=== PATIENT | female | born 1970 | race Caucasian/White ===

== ENCOUNTER 2017-01-14 06:57 | Day surgery (SDC) | payer OTHER ==
[~2017-01-14 06:57] MED LIST: CLONAZEPAM2 M2 PO; EFFEXOR PO; EFFEXOR XR75 M1 PO; FACTIVE; TRAZODONE HCL50 M1 PO; WELLBUTRIN XL150 M1 PO; WELLBUTRIN75 M1 PO
[2017-01-15] MEDS ORDERED: PERCOCET 5-3251 EACH PO (15:23)
[2017-01-15] MEDS ORDERED: IBUPROFEN800 M1 PO (15:24)
[2017-01-15] MEDS ORDERED: PRENATAL-U CAPS1 CAP PO (15:25)
== END 2017-01-15 16:05 ==
LOC: SHSC 06:57 → PACU 10:50 → OBGF 11:50
PROC: 0UT94ZZ Resection of Uterus, Percutaneous Endoscopic Approach (ICD-10-PCS; principal; 2017-01-14)
PROC: 0UTC4ZZ Resection of Cervix, Percutaneous Endoscopic Approach (ICD-10-PCS; 2017-01-14)
PROC: 0UT74ZZ Resection of Bilateral Fallopian Tubes, Percutaneous Endoscopic Approach (ICD-10-PCS; 2017-01-14)
PROC: 8E0W4CZ Robotic Assisted Procedure of Trunk Region, Percutaneous Endoscopic Approach (ICD-10-PCS; 2017-01-14)
DX: N80.0 Endometriosis of uterus (principal); D25.9 Leiomyoma of uterus, unspecified; N88.8 Other specified noninflammatory disorders of cervix uteri; N92.0 Excessive and frequent menstruation with regular cycle; M17.9 Osteoarthritis of knee, unspecified; F41.9 Anxiety disorder, unspecified; F32.9 Major depressive disorder, single episode, unspecified; Z87.891 Personal history of nicotine dependence; Z88.5 Allergy status to narcotic agent; Z79.899 Other long term (current) drug therapy; Z98.890 Other specified postprocedural states
CPT/HCPCS: J0690; J2405; J3010; J7030; J7121